=== PATIENT | female | born 1950 | race African-American/Black ===

== ENCOUNTER 2025-02-06 14:08 | Inpatient (IN) | payer MEDICARE, MEDICAID ==
[~2025-02-06] VITALS: Ht 157.5 cm; Wt 95.7 kg
[2025-02-06] MEDS: ACETAMINOPHEN 325MG TABLET PO ONE ×2 (15:57→22:27)
[2025-02-06 16:51] LABS: CLARITY URINE TURBID (CLEAR); GLUCOSE URINE NEGATIVE (NEGATIVE); KETONES URINE TRACE (NEGATIVE); LEUKOCYTE ESTERASE URINE 3+ (NEGATIVE); NITRITE URINE NEGATIVE (NEGATIVE); OCCULT BLOOD URINE 2+ (NEGATIVE); PH URINE 5.0 (4.5-8.0); PROTEIN URINE 3+ (NEGATIVE); SPECIFIC GRAVITY URINE 1.025 (1.005-1.030); UROBILINOGEN URINE 1.0 E.U./dL (0.2-1.0)
[2025-02-06 17:38] LABS: HEMATOCRIT. 32.2 % (36.0-48.0); HEMOGLOBIN. 10.6 g/dL (12.0-16.0); MEAN PLATELET VOLUME 8.0 fl (7.4-10.4); PLATELET 121 x1000/uL (130-400); RED BLOOD CELL COUNT 3.77 mill/uL (4.2-5.4); RED CELL DISTRIBUTION WIDTH 16.8 % (11.6-14.6)
[2025-02-06 17:38] LABS: COLOR URINE YELLOW (YELLOW)
[2025-02-06 17:40] LABS: WBC URINE TNTC /hpf (0-2)
[2025-02-06 17:41] LABS: BACTERIA URINE 2+; RBC URINE NONE SEEN /hpf (0-2); SQUAMOUS EPITHELIAL CELL URINE 2+ /lpf (RARE/1+)
[2025-02-06 17:42] LABS: MUCUS URINE 1+ /lpf (< = 2+)
[2025-02-06 17:56] LABS: UREA NITROGEN BLOOD 48.0 mg/dL (9-23)
[2025-02-06 17:58] LABS: LYMPHOCYTES % MANUAL 5.0 % (20.0-60.0); MONOCYTES % MANUAL 5.0 % (2.0-8.0); NEUTROPHILS % MANUAL 90.0 % (45.0-75.0); PLATELET ESTIMATE DECREASED; TROPONIN I HIGH SENSITIVITY 19 ng/L (3.0-34)
[2025-02-06 18:00] LABS: CREATININE 2.3 mg/dL (0.6-1.0)
[2025-02-06] MEDS: CEFTRIAXONE 1GM/50ML 50 ML IV ONE (19:56)
[2025-02-07] MEDS ORDERED: ZOLPIDEM TARTRATE 5MG TABLET PO PRN (02:15)
[2025-02-07] MEDS ORDERED: ONDANSETRON HCL 4MG/2ML INJ IV PRN (02:15)
[2025-02-07] MEDS: HYDROCODONE/ACETAMINOPHEN 5/325MG TABLET PO PRN (03:39)
[2025-02-07] MEDS: MAGNESIUM/ALUMINUM HYDROXIDE/SIMETHICONE 30ML UDC PO PRN (03:39)
[2025-02-07] MEDS: SODIUM CHLORIDE 0.9% 1,000 ML IV SCH (03:50)
[2025-02-07 04:33] VITALS: BP 136/66; PULSE 89; RESP 19; TEMP 36.6404
[2025-02-07 08:00] VITALS: BP 153/86; PULSE 87; RESP 18; TEMP 36.1; O2SAT 98
[2025-02-07] MEDS: PANTOPRAZOLE SODIUM 40 MG/VIAL IV SCH (08:39)
[2025-02-07] MEDS: ENOXAPARIN 30MG/0.3ML SYR SUBCUT SCH (08:39)
[2025-02-07 12:00] VITALS: BP 154/74; PULSE 84; RESP 18; TEMP 36.3; O2SAT 97
[2025-02-07 16:00] VITALS: BP 150/80; PULSE 94; RESP 18; TEMP 36.3; O2SAT 100
[2025-02-07] MEDS: LIDOCAINE 5% PATCH TOP SCH (16:02)
[2025-02-07] MEDS: CEFTRIAXONE 1GM/50ML 50 ML IV SCH (17:53)
[2025-02-07 20:00] VITALS: BP 138/60; PULSE 106; RESP 24; TEMP 36.4; O2SAT 95
[2025-02-07] MEDS: GABAPENTIN 100MG CAPSULE PO SCH (21:51)
[2025-02-08] VITALS: BP 141/57; PULSE 118; RESP 22; TEMP 36.7; O2SAT 94
[2025-02-08] MEDS: MORPHINE SULFATE 4 MG/ML INJ (FOR IV/IM USE) IV PRN (00:13)
[2025-02-08 07:31] LABS: HEMATOCRIT. 31.3 % (36.0-48.0); HEMOGLOBIN. 10.7 g/dL (12.0-16.0); MEAN PLATELET VOLUME 8.1 fl (7.4-10.4); PLATELET 101 x1000/uL (130-400); RED BLOOD CELL COUNT 3.71 mill/uL (4.2-5.4); RED CELL DISTRIBUTION WIDTH 17.0 % (11.6-14.6)
[2025-02-08 07:57] LABS: CREATININE 2.0 mg/dL (0.6-1.0); UREA NITROGEN BLOOD 60.0 mg/dL (9-23)
[2025-02-08 08:00] VITALS: BP 168/82; PULSE 108; RESP 19; TEMP 36.2; O2SAT 98
[2025-02-08] MEDS: CLONIDINE 0.1MG TABLET PO PRN (09:13)
[2025-02-08 12:53] LABS: BAND% 7.0 % (1.0-6.0); LYMPHOCYTES % MANUAL 9.0 % (20.0-60.0); MONOCYTES % MANUAL 2.0 % (2.0-8.0); NEUTROPHILS % MANUAL 82.0 % (45.0-75.0); NUCLEATED RED BLOOD CELLS 1 /100 WBC; PLATELET ESTIMATE DECREASED
[2025-02-08] MEDS: BENZONATATE 200MG CAPSULE PO SCH (13:08)
[2025-02-08] MEDS: BUDESONIDE 0.5MG/2ML NEB HHN SCH (14:38)
[2025-02-08] MEDS: IPRATROPIUM BROMIDE (0.02%) 0.5MG/2.5ML NEB HHN SCH (14:38)
[2025-02-08 14:39] VITALS: PULSE 98; RESP 16; O2SAT 97
[2025-02-08 16:00] VITALS: BP 163/77; PULSE 104; RESP 25; TEMP 37.1; O2SAT 98
[2025-02-08 16:34] LABS: INFLUENZA TYPE A Presumptive Negative (Pres. Neg.)
[2025-02-08 16:35] LABS: INFLUENZA TYPE B Presumptive Negative (Pres. Neg.)
[2025-02-08] MEDS: METHYLPREDNISOLONE SOD SUCC 40MG/ML (ACT-O-VIAL) IV NR (18:11)
[2025-02-08 19:58] LABS: CLARITY URINE CLEAR (CLEAR); COLOR URINE YELLOW (YELLOW); GLUCOSE URINE NEGATIVE (NEGATIVE); KETONES URINE NEGATIVE (NEGATIVE); LEUKOCYTE ESTERASE URINE 2+ (NEGATIVE); NITRITE URINE NEGATIVE (NEGATIVE); OCCULT BLOOD URINE 1+ (NEGATIVE); PH URINE 6.5 (4.5-8.0); PROTEIN URINE 1+ (NEGATIVE); SPECIFIC GRAVITY URINE 1.014 (1.005-1.030); UROBILINOGEN URINE 0.2 E.U./dL (0.2-1.0)
[2025-02-08 20:02] VITALS: BP 120/97; PULSE 100; RESP 22; TEMP 37.4; O2SAT 100
[2025-02-08 20:09] LABS: PROTEIN URINE RANDOM 80.0 mg/dL
[2025-02-08 20:11] LABS: *AMPHETAMINES SCREEN URINE NEGATIVE (NEGATIVE); *BARBITURATES SCREEN URINE NEGATIVE (NEGATIVE)
[2025-02-08 20:12] LABS: *BENZODIAZEPINES SCREEN URINE NEGATIVE (NEGATIVE); *COCAINE SCREEN URINE NEGATIVE (NEGATIVE); CANNABINOID URINE SCREEN NEGATIVE (NEGATIVE); CREATININE URINE RANDOM 62.3 mg/dL; ECSTASY MDMA SCREEN URINE NEGATIVE (NEGATIVE); METHADONE URINE SCREEN NEGATIVE (NEGATIVE); OPIATES URINE SCREEN PRESUMPTIVE POSITIVE (NEGATIVE); PHENCYCLIDINE URINE SCREEN NEGATIVE (NEGATIVE)
[2025-02-08 20:31] LABS: WBC URINE 0-2 /hpf (0-2)
[2025-02-08 20:32] LABS: BACTERIA URINE 1+; RBC URINE 0-2 /hpf (0-2); SQUAMOUS EPITHELIAL CELL URINE FEW /lpf (RARE/1+)
[2025-02-09] VITALS (10 sets, daily range): BP systolic 120–156; BP diastolic 59–104; PULSE 55–84; RESP 14–22; TEMP 36.6–36.9; O2SAT 99–100
[2025-02-09 06:49] LABS: HEMATOCRIT. 30.7 % (36.0-48.0); HEMOGLOBIN. 10.5 g/dL (12.0-16.0); MEAN PLATELET VOLUME 8.2 fl (7.4-10.4); PLATELET 105 x1000/uL (130-400); RED BLOOD CELL COUNT 3.64 mill/uL (4.2-5.4); RED CELL DISTRIBUTION WIDTH 16.9 % (11.6-14.6)
[2025-02-09 06:56] LABS: CREATININE 1.7 mg/dL (0.6-1.0)
[2025-02-09 06:57] LABS: UREA NITROGEN BLOOD 58.0 mg/dL (9-23)
[2025-02-09 14:39] LABS: BAND% 7.0 % (1.0-6.0); LYMPHOCYTES % MANUAL 3.0 % (20.0-60.0); MONOCYTES % MANUAL 4.0 % (2.0-8.0); NEUTROPHILS % MANUAL 86.0 % (45.0-75.0); PLATELET ESTIMATE SLIGHTLY DECREASED
[2025-02-10] VITALS (10 sets, daily range): BP systolic 128–163; BP diastolic 62–84; PULSE 59–99; RESP 14–23; TEMP 36.7; O2SAT 96–99
[2025-02-10] MEDS: ACETAMINOPHEN 325MG TABLET PO PRN (03:30)
[2025-02-10 06:11] LABS: HEMATOCRIT. 28.4 % (36.0-48.0); HEMOGLOBIN. 9.6 g/dL (12.0-16.0); MEAN PLATELET VOLUME 8.3 fl (7.4-10.4); PLATELET 136 x1000/uL (130-400); RED BLOOD CELL COUNT 3.38 mill/uL (4.2-5.4); RED CELL DISTRIBUTION WIDTH 16.8 % (11.6-14.6)
[2025-02-10 06:22] LABS: CREATININE 1.5 mg/dL (0.6-1.0); UREA NITROGEN BLOOD 65.0 mg/dL (9-23)
[2025-02-10 09:19] LABS: BAND% 2.0 % (1.0-6.0); EOSINOPHILS % MANUAL 2.0 % (0.0-5.0); LYMPHOCYTES % MANUAL 10.0 % (20.0-60.0); METAMYELOCYTES % 1.0 % (0-0); MONOCYTES % MANUAL 5.0 % (2.0-8.0); NEUTROPHILS % MANUAL 80.0 % (45.0-75.0); PLATELET ESTIMATE NORMAL
[2025-02-10] MEDS: CEFTRIAXONE 2GM/50ML 50 ML IV SCH (17:14)
[2025-02-11] VITALS (11 sets, daily range): BP systolic 129–163; BP diastolic 60–70; PULSE 72–103; RESP 17–27; TEMP 36.7–37.7; O2SAT 95–100
[2025-02-11 07:38] LABS: CREATININE 1.4 mg/dL (0.6-1.0); UREA NITROGEN BLOOD 53.0 mg/dL (9-23)
[2025-02-11 08:49] LABS: HEMATOCRIT. 29.2 % (36.0-48.0); HEMOGLOBIN. 9.9 g/dL (12.0-16.0); MEAN PLATELET VOLUME 8.3 fl (7.4-10.4); PLATELET 211 x1000/uL (130-400); RED BLOOD CELL COUNT 3.42 mill/uL (4.2-5.4); RED CELL DISTRIBUTION WIDTH 16.5 % (11.6-14.6)
[2025-02-11] MEDS ORDERED: HYDROMORPHONE HCL/PF 1MG/ML INJ IV NR (10:15)
[2025-02-11] MEDS: HYDROMORPHONE HCL/PF 1MG/ML INJ IV NR (10:45)
[2025-02-11] MEDS ORDERED: BENZ200C52 PO (16:39)
[2025-02-11] MEDS ORDERED: TOPUD PO (16:39)
[2025-02-11] MEDS ORDERED: PULM50 HHN (16:39)
[2025-02-11] MEDS ORDERED: GABA-529 PO (16:39)
[2025-02-11] MEDS ORDERED: CLON0.1T PO (16:39)
[2025-02-12] VITALS (9 sets, daily range): BP systolic 126–181; BP diastolic 60–97; PULSE 71–97; RESP 14–22; TEMP 36.4–37; O2SAT 98–100
[2025-02-12 07:26] LABS: HEMATOCRIT. 25.4 % (36.0-48.0); HEMOGLOBIN. 8.6 g/dL (12.0-16.0); MEAN PLATELET VOLUME 8.3 fl (7.4-10.4); PLATELET 240 x1000/uL (130-400); RED BLOOD CELL COUNT 3.05 mill/uL (4.2-5.4); RED CELL DISTRIBUTION WIDTH 16.2 % (11.6-14.6)
[2025-02-12 07:32] LABS: CREATININE 1.1 mg/dL (0.6-1.0); UREA NITROGEN BLOOD 38.0 mg/dL (9-23)
[2025-02-12 08:08] LABS: BAND% 2.0 % (1.0-6.0); EOSINOPHILS % MANUAL 1.0 % (0.0-5.0); LYMPHOCYTES % MANUAL 18.0 % (20.0-60.0); METAMYELOCYTES % 1.0 % (0-0); MONOCYTES % MANUAL 7.0 % (2.0-8.0); MYELOCYTES % 1.0 % (0-0); NEUTROPHILS % MANUAL 70.0 % (45.0-75.0); PLATELET ESTIMATE NORMAL
[2025-02-12] MEDS: HYDROMORPHONE HCL/PF 1MG/ML INJ IV NR (08:46)
[2025-02-12] MEDS ORDERED: NALOXONE HCL 0.4MG/ML VIAL IV PRN (15:00)
[2025-02-12] MEDS: HYDROMORPHONE HCL/PF 2MG/ML INJ IV PRN (15:52)
[2025-02-12 16:47] LABS: LYMPHOCYTES % MANUAL 8.0 % (20.0-60.0); MONOCYTES % MANUAL 7.0 % (2.0-8.0); NEUTROPHILS % MANUAL 85.0 % (45.0-75.0); PLATELET ESTIMATE NORMAL
[2025-02-13] VITALS: BP 164/79; PULSE 79; RESP 19; TEMP 36.6; O2SAT 99
== END 2025-02-13 03:13 | disposition short-term general hospital (02) | DRG 871 ==
LOC: ER 14:08 → 4WST 23:02 → EDBEDREQTM 23:09 → EDBEDREQ 23:09 → ENRESERV 23:56 → 4WST 02-07 02:10 → 3WST 02-08 15:30
PROVIDERS: ADMIT Internal Medicine; ATTEND Internal Medicine
DX: A41.9 Sepsis, unspecified organism (principal); J18.9 Pneumonia, unspecified organism; D69.6 Thrombocytopenia, unspecified; E87.1 Hypo-osmolality and hyponatremia; G90.89 Other disorders of autonomic nervous system; E11.22 Type 2 diabetes mellitus with diabetic chronic kidney disease; D50.9 Iron deficiency anemia, unspecified; N17.9 Acute kidney failure, unspecified; N12 Tubulo-interstitial nephritis, not specified as acute or chronic; E03.9 Hypothyroidism, unspecified; I12.9 Hypertensive chronic kidney disease with stage 1 through stage 4 chronic kidney disease, or unspecified chronic kidney disease; G44.009 Cluster headache syndrome, unspecified, not intractable; G89.29 Other chronic pain; N18.1 Chronic kidney disease, stage 1; E11.43 Type 2 diabetes mellitus with diabetic autonomic (poly)neuropathy; I25.10 Atherosclerotic heart disease of native coronary artery without angina pectoris; N27.0 Small kidney, unilateral; M48.061 Spinal stenosis, lumbar region without neurogenic claudication; N28.1 Cyst of kidney, acquired; E78.5 Hyperlipidemia, unspecified; M48.02 Spinal stenosis, cervical region; M47.816 Spondylosis without myelopathy or radiculopathy, lumbar region; Z79.899 Other long term (current) drug therapy
CPT/HCPCS: 36415; 71045; 72100; 72131; 72141; 72148; 76770; 80048; 80305; 81003; 82550; 82570; 82962; 83605; 83880; 84145; 84156; 84443; 84484; 85025; 87070; 87077; 87186; 87804; 93970; 94070; 94640; 94664; 96365; 99285; A4606; A4615; J0696; J1171; J1650; J2270; J2470; J2919; J7030; J7626